=== PATIENT | male | born 1995 | race Hispanic/Latino ===

== ENCOUNTER 2018-07-09 20:35 | Emergency (ER) | payer SELFPAY ==
[~2018-07-09] VITALS: Ht 165.1 cm; Wt 77.1 kg
[2018-07-09] MEDS ORDERED: IBUPROFEN 400 MG TAB PO ONE (21:15)
[2018-07-09] MEDS ORDERED: ACETAMINOPHEN/CODEINE 300MG - 30MG TAB PO ONE (21:15)
[2018-07-09] MEDS ORDERED: IBUPROFEN 600 MG TAB PO SCH (21:15)
[2018-07-09] MEDS ORDERED: ACETAMINOPHEN/CODEINE ELIX 120-12 MG/5 ML UDC PO ONE (21:30)
[2018-07-09 21:35] VITALS: BP 123/69
== END 2018-07-09 22:01 | disposition home or self-care (01) ==
LOC: FSED 20:35
DX: K02.9 Dental caries, unspecified (principal)
CPT/HCPCS: 99282